=== PATIENT | female | born 1950 | race Caucasian/White ===

== ENCOUNTER 2020-03-27 21:57 | Emergency (ER) | payer MEDICARE, OTHER ==
[2020-03-27 22:55] LABS: CHLORIDE,CL 103 mmol/L (98-107); SODIUM,NA 141 mmol/L (136-145)
--- NOTE | 2020-03-27 22:56 | EDM.PDOC ---
ED HPI GENERAL MEDICAL PROBLEM - General Chief Complaint: General Stated Complaint: Fast heart rate Time Seen by Provider: 03/27/20 22:30 Source of Information: Reports: Patient History Limitations: Reports: No Limitations - History of Present Illness INITIAL COMMENTS - FREE TEXT/NARRATIVE: Pt with increased HR tonight Has hx/o Afib in past Is usually in NSR and is on Metoprolol No chest pain No SOB Did walk an extra 30 blocks today for exercise Onset: Today, Gradual Duration: Resolved Prior to Arrival Location: Reports: Chest - Related Data Allergies Allergy/AdvReac Type Severity Reaction Status Date / Time No Known Allergies Allergy Verified 08/19/16 07:51 Home Meds: Home Meds Acetaminophen [Tylenol] 650 mg PO Q4H PRN #100 tablet 09/01/16 [Rx] Simvastatin [Zocor] 20 mg PO BEDTIME tablet 09/01/16 [Rx] Lutein/Minerals/Vit A,C & E [Ocuvite] 1 tab PO DAILY 03/27/20 [History] Magnesium Oxide [Magnesium] 800 mg PO DAILY 03/27/20 [History] Metoprolol Succinate 200 mg PO DAILY 03/27/20 [History] Multivitamin [Multi-Day Vitamins] 2 cap PO DAILY 03/27/20 [History] Non-Formulary Medication [NF Drug] 3 each PO 03/27/20 [History] Timolol Maleate [Timoptic 0.25% Ophth Soln] 1 drop EYEBOTH DAILY 03/27/20 [History] Warfarin Sodium [Jantoven] 5 mg PO ASDIRECTED 03/27/20 [History] Warfarin Sodium [Jantoven] 7.5 mg PO ASDIRECTED 03/27/20 [History] methIMAzole [Methimazole] 5 mg PO 03/27/20 [History] Past Medical History HEENT History: Reports: Allergic Rhinitis, Cataract, Glaucoma, Hard of Hearing, Impaired Vision, Other (See Below) Other HEENT History: Glasses, 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 tach on 12/24/03, bifascicular bundle-branch block Respiratory History: Reports: COPD Gastrointestinal History: Reports: Bowel Obstruction, Cholelithiasis, Diverticulosis, Gastritis, GERD, Other (See Below) Other Gastrointestinal History: Moderate small intestinal diverticulitis for CT scan on 08/19/16 with additional moderate sigmoid diverticulosis, gallbladder sludge without stones by above CT, borderline ileus with intestinal diverticulitis as above Genitourinary History: Reports: Other (See Below) Other Genitourinary History: Multiple left renal cysts with one somewhat complex left renal cyst by CT scan on 08/19/16 JAIL KEEPER History: Reports: Dysfunctional Uterine Bleeding, Endometriosis, Fibroids, , Other (See Below) Other JAIL KEEPER History: Menopause at age 52, endometriosis prior to however no problems since that time. Full term without complications during pregnancies or deliveries, bilateral ovarian cysts Musculoskeletal History: Reports: Arthritis, Back Pain, Chronic, Fracture, Neck Pain, Chronic, Osteoarthritis, RA Other Musculoskeletal History: Phalangeal Fracture of digit #4 of the right foot in the , phalangeal fracture of the left thumb in 1989, 2 previous vertebral body lumbar fractures of L4 and L5 in 1998 secondary to fall, Neurological History: Reports: Concussion, Head Trauma, Other (See Below) Other Neuro History: Head concussion in 1998 Psychiatric History: Reports: None Endocrine/Metabolic History: Reports: None Hematologic History: Reports: None Immunologic History: Reports: None Oncologic (Cancer) History: Reports: None Dermatologic History: Reports: None. Denies: Eczema, Psoriasis - Infectious Disease History Infectious Disease History: Reports: Chicken Pox - Past Surgical History Head Surgeries/Procedures: Reports: None HEENT Surgical History: Reports: Adenoidectomy, Cataract Surgery, Eye Surgery, Laser Surgery, Oral Surgery, Tonsillectomy, Other (See Below) Respiratory Surgical History: Reports: None Female Surgical History: Reports: Breast Biopsy, Tubal Ligation, Other (See Below) Endocrine Surgical History: Reports: None Musculoskeletal Surgical History: Reports: Shoulder Surgery, Other (See Below) Oncologic Surgical History: Reports: None Dermatological Surgical History: Reports: Skin Biopsy, Other (See Below) - Past Imaging History Past Imaging History: Reports: Angiography, CAT Scan, Ultrasound Social & Family History - Family History HEENT: Reports: Glaucoma, Hearing Impairment, Other (See Below) Other HEENT Family History: Mother with glaucoma, brother with acoustic hearing deficiency Cardiac: Reports: Arrhythmia, Bypass, CAD, High Cholesterol, Hypertension, TX, Pacemaker, PVD/COD, Stent, Other (See Below) Other Cardiac Family History: Brother with CABG times at age 71 with subsequent carotid stent placement also at 71, mother with hyperlipidemia, mother with pacemaker in her 70s with unknown type of tachycardia, parents with hypertension, father with TX in his 60s, 2 paternal uncles with fatal MIs in their 60s Respiratory: Reports: Pneumothorax, Other (See Below) Other Respiratory Family Hisory: Son with spontaneous pneumothorax GI: Reports: Cholelithiasis, Diverticulitis, Other (See Below) Other GI Family History: Brother with history of diverticulitis , Mother with cholecystectomy : Reports: None. Denies: Dialysis, Renal Calculus, Renal Disease/Insufficiency, UTI, Recurrent OBGYN: Reports: None. Denies: Dysfunctional uterine bleeding, Endometriosis, Recurrent Spontaneous Musculoskeletal: Reports: Arthritis, Osteoarthritis, RA, Other (See Below) Other Musculoskeletal Family History: Mother with osteoarthritis and rheumatoid arthritis Neurological: Reports: CVA, Parkinson's, Other (See Below) Other Neurological Family History: Father with fatal CVA about age 75, mother with fatal CVA in her 70s, father with Parkinson's disease Psychiatric: Reports: None. Denies: Abuse, Victim of, ADD, ADHD, Anxiety, Depression, Psych Hospitalization(s), PTSD, Suicide Attempt Endocrine/Metabolic: Reports: None, Diabetes, type II, IDDM, Other (See Below) Other Endocrine/Metabolic Family History: Father and maternal grandmother with IDDM, paternal grandmother with AODM, first cousin with1 diabetes Hematologic: Reports: None. Denies: Anemia, B12 Deficiency, SLE, Transfusion Reaction Immunologic: Reports: None. Denies: AIDS, HIV, SLE Dermatologic: Reports: None. Denies: Eczema, Psoriasis Oncologic: Reports: Breast, Other (See Below) Other Oncologic Family History: Paternal aunt with breast cancer in her 60s - Tobacco Use Smoking Status *Q: Never Smoker - Caffeine Use Caffeine Use: Reports: None Caffeine Use Comment: 1-2 cups of coffee per day - Recreational Drug Use Recreational Drug Use: No - Living Situation & Occupation Living situation: Reports: , Alone Occupation: Employed ED ROS GENERAL - Review of Systems Review Of Systems: See Below HEENT: Reports: No Symptoms Respiratory: Reports: No Symptoms Cardiovascular: Reports: Palpitations GI/Abdominal: Reports: No Symptoms ED EXAM, GENERAL - Physical Exam Exam: See Below Exam Limited By: No Limitations General Appearance: Alert, WD/WN, No Apparent Distress Neck: Supple Respiratory/Chest: Lungs Clear Cardiovascular: Regular Rate, Rhythm, No Edema GI/Abdominal: Non-Tender Extremities: Normal Inspection, No Pedal Edema Neurological: Alert, Oriented Psychiatric: Normal Affect, Normal Mood Course - Vital Signs Last Recorded V/S: Last Vital Signs Temp 98.5 F 03/27/20 22:00 Pulse 94 03/27/20 22:00 Resp 12 03/27/20 22:00 BP 130/81 03/27/20 22:00 Pulse Ox 96 03/27/20 22:00 - Orders/Labs/Meds Orders: Active Orders 24 hr Category Date Time Status EKG Documentation Completion [RC] ASDIRECTED Care 03/27/20 22:29 Active BMP [BASIC METABOLIC PANEL,BMP] [CHEM] Stat Lab 03/27/20 22:30 Received TROPONIN I [CHEM] Stat Lab 03/27/20 22:30 Received Labs: Laboratory Tests 03/27/20 Range/Units 22:30 WBC 6.5 (4.0-10.2) K/uL RBC 4.08 (3.77-5.09) M/uL Hgb 13.1 D (11.7-15.5) g/dL Hct 39.3 (34.0-46.0) % MCV 96.3 (84.0-98.0) fL MCH 32.1 (28.2-33.3) pg MCHC 33.3 (31.7-36.0) g/dL RDW 13.2 (11.2-14.1) % Plt Count 226 D (150-350) K/uL Neut % (Auto) 36.1 L (45.0-80.0) % Lymph % (Auto) 44.8 (10.0-50.0) % Wirt % (Auto) 14.0 (2.0-14.0) % Eos % (Auto) 4.5 (0.0-5.0) % Baso % (Auto) 0.6 (0.0-2.0) % Neut # (Auto) 2.33 (1.40-7.00) K/uL Lymph # (Auto) 2.89 (0.50-3.50) K/uL Wirt # (Auto) 0.90 (0.00-1.00) K/uL Eos # (Auto) 0.29 (0.00-0.50) K/uL Baso # (Auto) 0.04 (0.00-0.20) K/uL - Re-Assessments/Exams Free Text/Narrative Re-Assessment/Exam: 03/27/20 22:54 Pt stable EKG NSR with rate in the 70's See lab Departure - Departure Time of Disposition: 23:00 Disposition: Home, Self-Care 01 Clinical Impression: Afib Qualifiers: Atrial fibrillation type: paroxysmal Qualified Code(s): I48.0 - Paroxysmal atrial fibrillation - Discharge Information *PRESCRIPTION DRUG MONITORING PROGRAM REVIEWED*: Not Applicable *COPY OF PRESCRIPTION DRUG MONITORING REPORT IN PATIENT KOBI: Not Applicable Instructions: Atrial Fibrillation, [id number] Referrals: Sebastian Gallagher PA [Primary Care Provider] - Additional Instructions: Follow up in clinic To ER if recurs Sepsis Event Note (ED) - Evaluation Sepsis Screening Result: No Definite Risk - Focused Exam Vital Signs: Vital Signs Temp Pulse Resp BP Pulse Ox 03/27/20 22:00 98.5 F 94 12 130/81 96 - My Orders Last 24 Hours: My Active Orders 03/27/20 22:29 EKG Documentation Completion [RC] ASDIRECTED 03/27/20 22:30 BMP [BASIC METABOLIC PANEL,BMP] [CHEM] Stat TROPONIN I [CHEM] Stat - Assessment/Plan Last 24 Hours: My Active Orders 03/27/20 22:29 EKG Documentation Completion [RC] ASDIRECTED 03/27/20 22:30 BMP [BASIC METABOLIC PANEL,BMP] [CHEM] Stat TROPONIN I [CHEM] Stat
[2020-03-27 23:36] VITALS: BP 127/71; PULSE 67
== END 2020-03-27 23:10 | disposition home or self-care (01) ==
LOC: LL.ED 21:57
DX: I48.0 Paroxysmal atrial fibrillation (principal); I10 Essential (primary) hypertension; E78.00 Pure hypercholesterolemia, unspecified; M19.90 Unspecified osteoarthritis, unspecified site; Z79.899 Other long term (current) drug therapy
CPT/HCPCS: 36415; 80048; 84484; 85025; 93005; 99283; 99285-25

== ENCOUNTER 2023-06-03 08:47 | Day surgery (SDC) | payer MEDICARE, OTHER ==
[~2023-06-03 08:47] MED LIST: Lactated Ringers 1,000 ML IV SCH; Midazolam 1 MG/ML 2 ML SDV ONE; Propofol 200 MG/20 ML SDV ONE; Sodium Chloride 0.9% 10 ML Syringe FLUSH PRN
[2023-06-03 10:31] VITALS: PULSE 74
[2023-06-03 10:45] VITALS: BP 138/88
== END 2023-06-03 12:00 | disposition home or self-care (01) ==
LOC: LL.SDS 08:47
PROVIDERS: ATTEND Surgery
DX: K57.30 Diverticulosis of large intestine without perforation or abscess without bleeding (principal); I11.0 Hypertensive heart disease with heart failure; I50.20 Unspecified systolic (congestive) heart failure; D68.59 Other primary thrombophilia; E78.5 Hyperlipidemia, unspecified; J44.9 Chronic obstructive pulmonary disease, unspecified; K21.9 Gastro-esophageal reflux disease without esophagitis; I48.0 Paroxysmal atrial fibrillation; Z79.01 Long term (current) use of anticoagulants; Z98.890 Other specified postprocedural states; Z79.899 Other long term (current) drug therapy; Z88.8 Allergy status to other drugs, medicaments and biological substances; Z87.891 Personal history of nicotine dependence
CPT/HCPCS: 00812; J2250; J2704; J7120

== ENCOUNTER 2023-12-05 13:30 | Emergency (ER) | payer MEDICARE, OTHER ==
[2023-12-05 14:19] LABS: BASOPHILS ABSOLUTE AUTO 0.02 K/uL (0.00-0.20); BASOPHILS PERCENT AUTO 0.4 % (0.0-2.0); EOSINOPHILS ABSOLUTE AUTO 0.28 K/uL (0.00-0.50); EOSINOPHILS PERCENT AUTO 5.6 % (0.0-5.0); HEMATOCRIT 39.6 % (34.0-46.0); LYMPHOCYTES ABSOLUTE AUTO 1.24 K/uL (0.50-3.50); LYMPHOCYTES PERCENT AUTO 24.8 % (10.0-50.0); MEAN CORPUSCULAR HGB CONC 32.8 g/dL (31.7-36.0); MEAN CORPUSCULAR VOLUME 94.3 fL (84.0-98.0); MONOCYTES ABSOLUTE AUTO 0.63 K/uL (0.00-1.00); MONOCYTES PERCENT AUTO 12.6 % (2.0-14.0); NEUTROPHILS ABSOLUTE AUTO 2.83 K/uL (1.40-7.00); NEUTROPHILS PERCENT AUTO 56.6 % (45.0-80.0); PLATELET COUNT,PLT 299 K/uL (150-350); RED CELL DISTRIBUTION WIDTH 12.7 % (11.2-14.1)
[2023-12-05 14:35] LABS: ALANINE AMINOTRANSFERASE,ALT 25 U/L (12-78); ALBUMIN 3.1 g/dL (3.4-5.0); ALKALINE PHOSPHATASE 74 IU/L (46-116); ANION GAP 7.3 meq/L (7-15); ASPARTATE AMNIOTRANSFERASE,AST 17 U/L (15-37); BILIRUBIN TOTAL 0.2 mg/dL (0.2-1.0); BLOOD UREA NITROGEN,BUN 11 mg/dL (7-18); CALCIUM 8.9 mg/dL (8.5-10.1); CARBON DIOXIDE,CO2 31.7 mmol/L (21.0-32.0); CHLORIDE,CL 101 mmol/L (98-107); CREATININE 0.78 mg/dL (0.51-1.17); GLUCOSE RANDOM 115 mg/dL (70-99); MAGNESIUM 1.9 mg/dL (1.8-2.4); POTASSIUM,K 4.2 mmol/L (3.5-5.1); PROTEIN TOTAL,TP 6.7 g/dL (6.4-8.2); SODIUM,NA 140 mmol/L (136-145)
[2023-12-05 14:36] LABS: ESTIMATED GFR 79 mL/min (>=60)
[2023-12-05 14:38] LABS: INR 3.3 (0.9-1.1); PROTHROMBIN TIME 31.4 SEC (9.0-11.1)
[2023-12-05 15:46] VITALS: BP 127/91; PULSE 73
== END 2023-12-05 15:05 | disposition home or self-care (01) ==
LOC: LL.ED 13:30
DX: E05.90 Thyrotoxicosis, unspecified without thyrotoxic crisis or storm (principal); I49.3 Ventricular premature depolarization; I48.91 Unspecified atrial fibrillation; I11.0 Hypertensive heart disease with heart failure; I50.9 Heart failure, unspecified; E78.00 Pure hypercholesterolemia, unspecified; J44.9 Chronic obstructive pulmonary disease, unspecified; K21.9 Gastro-esophageal reflux disease without esophagitis; Z88.8 Allergy status to other drugs, medicaments and biological substances; Z79.01 Long term (current) use of anticoagulants; Z79.899 Other long term (current) drug therapy; Z79.51 Long term (current) use of inhaled steroids; Z86.19 Personal history of other infectious and parasitic diseases; Z87.891 Personal history of nicotine dependence
CPT/HCPCS: 36415; 71046; 80053; 83735; 84484; 85025; 85610; 93005; 93010; 99284; 99285